=== PATIENT | male | born 1975 | race Hispanic/Latino ===

== ENCOUNTER 2021-10-21 16:11 | Emergency (ER) | payer OTHER ==
[~2021-10-21] VITALS: Ht 175.3 cm; Wt 86.2 kg
[2021-10-21] MEDS ORDERED: CEPHALEXIN 500 MG CAPSULE PO ONE (17:00)
[2021-10-21] MEDS ORDERED: CEPH500B PO (17:23)
[2021-10-21] MEDS ORDERED: ACET1TAB25 PO (17:23)
[2021-10-21] MEDS ORDERED: IBUP-2070 PO (17:23)
[2021-10-21 17:30] VITALS: BP 132/91
[2021-10-21] MEDS ORDERED: HYDROCODONE/ACETAMINOPHEN 5/325 MG TAB PO ONE (17:30)
[2021-10-21] MEDS ORDERED: IBUPROFEN 600 MG TABLET PO ONE (17:30)
== END 2021-10-21 17:50 | disposition home or self-care (01) ==
LOC: EDH 16:11
DX: S92.491A Other fracture of right great toe, initial encounter for closed fracture (principal); I10 Essential (primary) hypertension; W20.8XXA Other cause of strike by thrown, projected or falling object, initial encounter; Y93.89 Activity, other specified; Y92.89 Other specified places as the place of occurrence of the external cause; Y99.8 Other external cause status
CPT/HCPCS: 73630